=== PATIENT | male | born 1975 | race African-American/Black ===

== ENCOUNTER 2019-05-10 22:05 | Emergency (ER) | payer SELFPAY ==
[2019-05-10 22:12] VITALS: BP 160/125; PULSE 99; TEMP 98.1; BMI 32.3
[2019-05-10] MEDS ORDERED: KETOROLAC TROMETHAMINE 60 MG/2 ML VIAL ONE (22:28)
[2019-05-10] MEDS ORDERED: KETOROLAC TROMETHAMINE 60 MG/2 ML VIAL IM ONE (22:28)
--- NOTE | 2019-05-10 22:33 | PDOC ---
History of Present Illness - General Chief Complaint: Pain, Acute Stated Complaint: GROIN PROBLEM Time Seen by Provider: 05/10/19 22:27 History Source: Patient Exam Limitations: Clinical Condition - History of Present Illness Initial Comments: 05/10/19 22:29 Patient with no significant past medical history complaint of right-sided scrotal pain after to right groin area after waking up this morning. Patient felt he might have slept on his testicles. Patient did not take anything for pain. Denies nausea, vomiting, burning with urination or penile discharge. Denies any other symptoms Timing/Duration: 4-6 hours Past History - Past Medical History Allergies/Adverse Reactions: Allergies Allergy/AdvReac Type Severity Reaction Status Date / Time No Known Allergies Allergy Verified 05/10/19 22:32 Home Medications: Ambulatory Orders Ibuprofen 800 mg PO Q8H PRN #20 tablet 05/10/19 COPD: No - Suicide/Smoking/Psychosocial Hx Smoking History: Unknown if ever smoked Information on smoking cessation initiated: No Hx Alcohol Use: No Drug/Substance Use Hx: No Review of Systems - Review of Systems Able to Perform ROS?: Yes Is the patient limited [place] proficient: No Constitutional: No: Weakness HEENTM: No: Symptoms Reported Respiratory: No: Symptoms reported Cardiac (ROS): No: Symptoms Reported : Yes: Symptoms Reported, See HPI, Testicular Pain (righ side). No: Dysuria, Discharge, Urgency, Testicular Mass, Testicular Swelling, Lesions Musculoskeletal: Yes: Symptoms Reported, See HPI, Muscle Pain (right groin pain) Neurological: No: Symptoms reported All Other Systems: Reviewed and Negative *Physical Exam - Vital Signs Last Vital Signs Temp Pulse Resp BP Pulse Ox 98.1 F 99 H 20 160/125 H 95 05/10/19 22:07 05/10/19 22:07 05/10/19 22:07 05/10/19 22:07 05/10/19 22:07 - Physical Exam Comments: 05/10/19 22:32 GENERAL: Well developed, well nourished. Awake and alert in moderate acute distress. NECK: Supple. Full ROM. CARDIOVASCULAR: Regular rate and rhythm. No murmurs, rubs, or gallops. Distal pulses are 2+ and symmetric. PULMONARY: No evidence of respiratory distress. ABDOMINAL: Soft. Non-tender. Non-distended. No rebound or guarding. No organomegaly. Normoactive bowel sounds. MUSCULOSKELETAL Normal range of motion at all joints. : moderate tenderness to right testicles and groin. no scrotal swelling. no mass or hernia appreciated SKIN: Warm and dry. Normal capillary refill. No rashes. No jaundice. NEUROLOGICAL: Alert, awake, appropriate. Gait is normal without ataxia. PSYCHIATRIC: Cooperative. Good eye contact. Appropriate mood General Appearance: Yes: Nourished, Appropriately Dressed, Apparent Distress, Moderate Distress ED Treatment Course - RADIOLOGY Radiology Studies Ordered: Category Date Time Status SCROTUM AND CONTENTS US [US] Stat Ultrasound 05/10/19 22:28 Ordered Medical Decision Making - Medical Decision Making 05/10/19 22:30 Patient with no significant past medical history complaint of right-sided scrotal pain after to right groin area after waking up this morning. Patient felt he might have slept on his testicles. Patient did not take anything for pain. Denies nausea, vomiting, burning with urination or penile discharge. Denies any other symptoms Exam significant for moderate tenderness to right testicle and right groin area. No testicular mass on exam. No evidence of hernia on exam. Toradol 60 mg IM ordered for pain. Scrotal ultrasound ordered to rule out torsion or acute pathology. 05/10/19 23:52 testicular U/S shows no torsion. Patient advised to f/u with urology. Motrin as needed for pain *DC/Admit/Observation/Transfer Diagnosis at time of Disposition: Testicular pain, right - Discharge Dispostion Disposition: HOME Condition at time of disposition: Stable Decision to Admit order: No - Prescriptions Prescriptions: Ibuprofen 800 mg PO Q8H PRN #20 tablet PRN Reason: pain - Referrals Referrals: Andreas Acevedo MD [Staff Physician] - - Patient Instructions Additional Instructions: testicular ultrasound was normal and shows no hernia or torsion. Take prescribed medication as needed for pain. Apply warm compress to the area as needed for pain. Follow-up referred urology if symptoms persist for more than 2 days - Post Discharge Activity
--- NOTE | 2019-05-11 00:20 | PDOC ---
*Physical Exam - Vital Signs Last Vital Signs Temp Pulse Resp BP Pulse Ox 98.1 F 99 H 20 160/125 H 95 05/10/19 22:07 05/10/19 22:07 05/10/19 22:07 05/10/19 22:07 05/10/19 22:07 Medical Decision Making - Medical Decision Making 05/11/19 00:18 Endorsed to me to follow up US patient c/o pain to the right testicle US below Patient Full Name: MILAGROS TAVAREZ Patient Accession No: [id number] Patient : 1975 Reason for Exam: r/o torsion Referring Physician: JACKIE MEEHAN Patient Name: CORBY LINARES THIS IS A PRELIMINARY REPORT FROM [facility] DATE OF SERVICE: 2019-05-10 22:27:59 IMAGES: 76 EXAM: SCROTUM AND CONTENTS US . Grayscale, color flow and Doppler images provided. HISTORY: 43-year-old male evaluate for torsion COMPARISON: None. Findings: The right testicle measures 3.2 x 4.5 x 2.6 cm. Color flow and Doppler arterial/ venous signal to the right testicle demonstrated. The echotexture of the right testicle is slightly heterogeneous with increased flow versus the left testicle noted. Right epididymal head and body normal in configuration. Right epididymal head cyst measuring approximately 6 mm in diameter. Left testicle measures 2.9 x 4.9 x 2.1 cm. Color flow and Doppler arterial/ venous signal to left testicle demonstrated. Left epididymis unremarkable. There is no evidence of right or left-sided hydrocele or varicocele. Impression: 1. No evidence of acute testicular torsion. 2. Differential diagnosis at this time includes acute orchitis versus torsion/ detorsion. Interval follow-up recommended. Clinical correlation advised. THIS DOCUMENT HAS BEEN ELECTRONICALLY SIGNED Davi Larsen MD 05/10/2019 23:52 EST [facility]. Please call [facility] [phone] ([phone]) with questions. INTERPRETING RADIOLOGIST: Davi Larsen MD Electronically Signed: May 10, 2019 11:53PM EDT 05/11/19 00:22 Results of the ultrasound discussed with the patient and need to follow up with urology. Patient also advised that he needs to follow-up with a primary care doctor for his blood pressure. *DC/Admit/Observation/Transfer Diagnosis at time of Disposition: Testicular pain, right - Discharge Dispostion Disposition: HOME Condition at time of disposition: Stable - Prescriptions Prescriptions: Ibuprofen 800 mg PO Q8H PRN #20 tablet PRN Reason: pain - Referrals Referrals: Andreas Acevedo MD [Staff Physician] - - Patient Instructions Additional Instructions: testicular ultrasound was normal and shows no hernia or torsion. Take prescribed medication as needed for pain. Apply warm compress to the area as needed for pain. Follow-up referred urology if symptoms persist for more than 2 days - Post Discharge Activity
== END 2019-05-11 00:24 | disposition home or self-care (01) ==
LOC: JERFT 22:05 → JER 22:05
PROC: 3E0233Z Introduction of Anti-inflammatory into Muscle, Percutaneous Approach (ICD-10-PCS; principal; 2019-05-10)
DX: N50.811 Right testicular pain (principal)
CPT/HCPCS: 76870-TC; 99282-25

== ENCOUNTER 2023-01-27 08:15 | Emergency (ER) | payer OTHER ==
[2023-01-27 08:28] VITALS: RESP 20; TEMP 98; BMI 32.1
[2023-01-27] MEDS ORDERED: SODIUM CHLORIDE 1,000 ML IV STA (09:04)
[2023-01-27] MEDS ORDERED: KETOROLAC TROMETHAMINE 15 MG/ML VIAL IVPUSH ONE (09:04)
[2023-01-27] MEDS ORDERED: morphine CARPU-JECT 2 MG/1 ML DISP.SYRIN IVPUSH ONE (09:05)
[2023-01-27] MEDS ORDERED: KETOROLAC TROMETHAMINE 15 MG/ML VIAL ONE (09:10)
[2023-01-27 09:15] LABS: BASO % 1.4 % (0-2.0); EOS % 1.1 % (0-4.5); HEMATOCRIT 44.9 % (35.4-49); HEMOGLOBIN 15.8 GM/dL (11.7-16.9); LYMPH % 26.9 % (8-40); MCHC 35.2 g/dl (32.0-35.9); MEAN CELL VOLUME 85.2 fl (80-96); MEAN PLT VOLUME 8.3 fl (7.5-11.1); MONO % 5.6 % (3.8-10.2); PLATELET COUNT 224 10^3/uL (134-434); RBC 5.26 M/mm3 (4.00-5.60); WHITE BLOOD COUNT 9.7 K/mm3 (4.0-10.0)
[2023-01-27 09:35] LABS: CALCIUM 8.6 mg/dL (8.5-10.1)
[2023-01-27 09:36] LABS: ALBUMIN 3.8 g/dl (3.4-5.0); BLOOD UREA NITROGEN 12.3 mg/dL (7-18)
[2023-01-27 09:39] LABS: CREATININE 0.9 mg/dL (0.55-1.3)
[2023-01-27 09:40] LABS: BILIRUBIN,TOTAL 0.6 mg/dL (0.2-1)
[2023-01-27 09:41] LABS: TOT PROT 7.4 g/dl (6.4-8.2)
[2023-01-27 10:23] VITALS: BP 170/100; PULSE 69
[2023-01-27 12:20] LABS: EPI CELLS 8 /uL (0-25.1); HYALINE CASTS 2 /uL (0-3.1); PH,URINE 5.5 (5.0-8.0); URINE APPEARANCE CLEAR; URINE BACTERIA 16 /uL (0-1359); URINE BILIRUBIN NEGATIVE (NEGATIVE); URINE COLOR YELLOW; URINE GLUCOSE (UA) TRACE (NEGATIVE); URINE KETONE NEGATIVE (NEGATIVE); URINE LEUK ESTERASE TRACE (NEGATIVE); URINE NITRITE NEGATIVE (NEGATIVE); URINE PROTEIN NEGATIVE (NEGATIVE); URINE RBC 20 /uL (0-23.9); URINE UROBILINOGEN 0.2 mg/dL (0.2-1.0); URINE WBC 21 /uL (0-25.8)
== END 2023-01-27 13:04 | disposition home or self-care (01) ==
LOC: JER 08:15
PROC: 3E0333Z Introduction of Anti-inflammatory into Peripheral Vein, Percutaneous Approach (ICD-10-PCS; principal; 2023-01-27)
PROC: 3E033GC Introduction of Other Therapeutic Substance into Peripheral Vein, Percutaneous Approach (ICD-10-PCS; 2023-01-27)
PROC: 3E0337Z Introduction of Electrolytic and Water Balance Substance into Peripheral Vein, Percutaneous Approach (ICD-10-PCS; 2023-01-27)
DX: R31.9 Hematuria, unspecified (principal); M54.50 Low back pain, unspecified; R10.32 Left lower quadrant pain
CPT/HCPCS: 36415; 74176-TC; 80053; 81003; 85025; 87077; 87086; 87186; 99284-25

== ENCOUNTER 2023-06-02 20:14 | Inpatient (IN) | payer OTHER ==
[2023-06-02] MEDS ORDERED: LACTATED RINGERS SOLUTION 1000 ML INFUS.BAG IV ONE (21:00)
[2023-06-02] MEDS ORDERED: morphine CARPU-JECT 4 MG/1 ML DISP.SYRIN IVPUSH ONE ×2 (21:00→23:07)
[2023-06-02] MEDS ORDERED: morphine SULFATE 4 MG/ML VIAL ONE ×2 (21:23→23:22)
[2023-06-02 21:29] LABS: VENOUS BASE EXCESS 1.4 mmol/L (-2-2); VENOUS O2 SATURATION 89.8 % (70-80); VENOUS PCO2 38.7 mmHg (38-52); VENOUS PH 7.436 (7.310-7.410)
[2023-06-02 21:41] LABS: CHLORIDE 90 mmol/L (98-107); POTASSIUM 3.7 mmol/L (3.5-5.1); SODIUM 128 mmol/L (136-145)
[2023-06-02 21:44] LABS: ANION GAP 8 MMOL/L (8-16); CO2 29 mmol/L (21-32); LIPASE 501 U/L (73-393)
[2023-06-02 21:47] LABS: CREATININE 1.4 mg/dL (0.55-1.3)
[2023-06-02 21:57] LABS: MCH 28.7 pg (25.7-33.7); MEAN CELL VOLUME 86.5 fl (80-96); RDW 14.5 % (11.9-15.9)
[2023-06-02 22:01] LABS: RBC 5.43 M/mm3 (4.00-5.60); WHITE BLOOD COUNT 15.4 K/mm3 (4.0-10.0)
[2023-06-02 22:02] LABS: HEMOGLOBIN 15.3 GM/dL (11.7-16.9); MCHC 33.2 g/dl (32.0-35.9); MEAN PLT VOLUME 9.6 fl (7.5-11.1); PLATELET COUNT 241 10^3/uL (134-434)
[2023-06-02 22:03] LABS: BASO % 1.4 % (0-2.0); EOS % 0.6 % (0-4.5); LYMPH % 16.8 % (8-40); MONO % 4.6 % (3.8-10.2); NEUT % 76.6 % (42.8-82.8)
[2023-06-02 22:20] LABS: ALBUMIN 3.2 g/dl (3.4-5.0); ALK PHOS 77 U/L (45-117); BLOOD UREA NITROGEN 13.2 mg/dL (7-18); CALCIUM 5.2 mg/dL (8.5-10.1); GLUCOSE,RANDOM 565 mg/dL (74-106); TOT PROT 7.6 g/dl (6.4-8.2)
[2023-06-02] MEDS ORDERED: ASPIRIN 81 MG CHEWABLE TABLETS ONE (22:27)
[2023-06-02 22:44] LABS: EPI CELLS 2 /uL (0-25.1); HYALINE CASTS 0 /uL (0-3.1); URINE APPEARANCE CLEAR; URINE BACTERIA 10 /uL (0-1359); URINE BILIRUBIN NEGATIVE (NEGATIVE); URINE COLOR YELLOW; URINE GLUCOSE (UA) 3+ (NEGATIVE); URINE KETONE 1+ (NEGATIVE); URINE LEUK ESTERASE NEGATIVE (NEGATIVE); URINE NITRITE NEGATIVE (NEGATIVE); URINE PROTEIN NEGATIVE (NEGATIVE); URINE RBC 14 /uL (0-23.9); URINE UROBILINOGEN 0.2 mg/dL (0.2-1.0); URINE WBC 2 /uL (0-25.8)
[2023-06-02] MEDS: ASPIRIN 81 MG CHEWABLE TABLETS PO SCH (23:15)
[2023-06-02] MEDS ORDERED: POTASSIUM CHLORIDE ORAL LIQUID 20 MEQ/15 ML PO ONE (23:22)
[2023-06-02 23:44] LABS: CHLORIDE 94 mmol/L (98-107); POTASSIUM 3.8 mmol/L (3.5-5.1); SODIUM 129 mmol/L (136-145)
[2023-06-02] MEDS ORDERED: LACTATED RINGERS SOLUTION 1,000 ML with POTASSIUM CHLORIDE 20 MEQ IV ONE (23:45)
[2023-06-02 23:47] LABS: ANION GAP 9 MMOL/L (8-16); CO2 25 mmol/L (21-32)
[2023-06-02 23:50] LABS: CREATININE 1.1 mg/dL (0.55-1.3)
[2023-06-03] MEDS ORDERED: POTASSIUM CHLORIDE ORAL LIQUID 20 MEQ/15 ML ONE
[2023-06-03] MEDS ORDERED: INSULIN REGULAR HUMAN 100 UNITS/ML *VIAL* (FOR IVP) IVPUSH ONE (00:18)
[2023-06-03] MEDS ORDERED: HYDROmorphone HCl 2 MG/ML VIAL IVPUSH PRN (00:26)
[2023-06-03 00:30] LABS: LACTIC ACID 3.4 mmol/L (0.4-2.0)
[2023-06-03] MEDS ORDERED: INSULIN REGULAR HUMAN 100 UNITS/ML *VIAL ONE ×2 (00:30→22:25)
[2023-06-03] MEDS ORDERED: INSULIN REGULAR 100 UNITS in SODIUM CHLORIDE 99 ML IVPB SCH (00:30)
[2023-06-03] MEDS: D5-NS + 40 MEQ KCL - 40 MEQ/1,000 ML INFUS.BAG IV SCH ×2 (00:58→06:32)
[2023-06-03 01:36] LABS: BLOOD UREA NITROGEN 12.2 mg/dL (7-18)
[2023-06-03 01:38] LABS: ALK PHOS 67 U/L (45-117); TOT PROT 7.1 g/dl (6.4-8.2)
[2023-06-03] MEDS: HYDROmorphone HCl 2 MG/ML VIAL IVPUSH PRN ×2 (01:40→11:00)
[2023-06-03 02:08] LABS: LDL CHOLESTEROL (ONLY SJRH) 129 mg/dL (5-100)
[2023-06-03 02:23] LABS: BILIRUBIN,TOTAL 1.8 mg/dL (0.2-1); CALCIUM 5.4 mg/dL (8.5-10.1); CHOLESTEROL 368 mg/dL (50-200); GLUCOSE,RANDOM 461 mg/dL (74-106); HDL CHOLESTEROL 42 mg/dL (40-60)
[2023-06-03] MEDS: HEPARIN NA (PORCINE) 5,000 UNITS/ML 1ML VIAL SQ SCH ×3 (05:34→21:24)
[2023-06-03] MEDS ORDERED: LABETALOL HCL 5 MG/1 ML (100MG/20 ML VIAL) IVPUSH PRN (06:20)
[2023-06-03] MEDS ORDERED: ONDANSETRON 4 MG/2 ML VIAL ONE (07:16)
[2023-06-03 07:22] LABS: HEMATOCRIT 42.9 % (35.4-49); HEMOGLOBIN 15.9 GM/dL (11.7-16.9); MCHC 37.1 g/dl (32.0-35.9); MEAN CELL VOLUME 86.3 fl (80-96); MEAN PLT VOLUME 9.8 fl (7.5-11.1); PLATELET COUNT 206 10^3/uL (134-434); RBC 4.97 M/mm3 (4.00-5.60); RDW 14.7 % (11.9-15.9)
[2023-06-03 09:08] LABS: CHLORIDE 103 mmol/L (98-107); POTASSIUM 4.2 mmol/L (3.5-5.1); SODIUM 134 mmol/L (136-145)
[2023-06-03 09:10] LABS: ANION GAP 7 MMOL/L (8-16); CO2 24 mmol/L (21-32); GLUCOSE,RANDOM 320 mg/dL (74-106); MAGNESIUM 2.3 mg/dL (1.8-2.4)
[2023-06-03 09:13] LABS: CREATININE 0.8 mg/dL (0.55-1.3); PHOSPHOROUS 1.5 mg/dL (2.5-4.9)
[2023-06-03] MEDS ORDERED: POTASSIUM PHOSPHATE 30 MM in SODIUM CHLORIDE 500 ML IVPB ONE (09:17)
[2023-06-03] MEDS: ASPIRIN 81 MG CHEWABLE TABLETS PO SCH (09:31)
[2023-06-03 09:36] LABS: BLOOD UREA NITROGEN 9.3 mg/dL (7-18); CALCIUM 6.2 mg/dL (8.5-10.1)
[2023-06-03] MEDS ORDERED: ALBUMIN HUMAN 5% 500 ML IV SOLUTION IV ONE (10:41)
[2023-06-03] MEDS ORDERED: CALCIUM GLUCONATE IN NACL 1 GM/50 ML BAG IVPB ONE ×2 (10:43→16:15)
[2023-06-03] MEDS ORDERED: CALCIUM GLUCONATE 10% - 1,000 MG/10 ML VIAL ONE ×2 (10:52→16:02)
[2023-06-03] MEDS: MUPIROCIN 2% TOPICAL OINTMENT FOR DECOLONIZATION NS SCH ×2 (11:10→21:48)
[2023-06-03 11:21] LABS: INR 1.07 (0.83-1.09); PROTHROMBIN TIME (PATIENT) 12.4 SEC (9.7-13.0)
[2023-06-03 11:28] LABS: CHLORIDE 105 mmol/L (98-107); POTASSIUM 4.2 mmol/L (3.5-5.1); SODIUM 134 mmol/L (136-145)
[2023-06-03 11:31] LABS: ALBUMIN 2.8 g/dl (3.4-5.0); ANION GAP 6 MMOL/L (8-16); CO2 23 mmol/L (21-32); GLUCOSE,RANDOM 302 mg/dL (74-106)
[2023-06-03 11:34] LABS: CREATININE 0.7 mg/dL (0.55-1.3)
[2023-06-03 11:36] LABS: BILIRUBIN,TOTAL 0.9 mg/dL (0.2-1)
[2023-06-03 11:42] LABS: ALK PHOS 57 U/L (45-117); BLOOD UREA NITROGEN 7.4 mg/dL (7-18); CALCIUM 6.4 mg/dL (8.5-10.1); TOT PROT 6.4 g/dl (6.4-8.2)
[2023-06-03] MEDS ORDERED: CALCIUM GLUCONATE IN NACL 1 GM/50 ML BAG IVPB SCH (13:00)
[2023-06-03] MEDS ORDERED: ACETAMINOPHEN 1000 MG/100 ML BAG IVPB ONE (14:10)
[2023-06-03] MEDS ORDERED: ONDANSETRON 4 MG/2 ML VIAL IVPUSH ONE (14:33)
[2023-06-03 16:06] LABS: CHLORIDE 108 mmol/L (98-107); SODIUM 137 mmol/L (136-145)
[2023-06-03 16:09] LABS: ALBUMIN 2.7 g/dl (3.4-5.0); ANION GAP 5 MMOL/L (8-16); CO2 24 mmol/L (21-32); GLUCOSE,RANDOM 256 mg/dL (74-106)
[2023-06-03 16:12] LABS: CREATININE 0.7 mg/dL (0.55-1.3)
[2023-06-03 16:13] LABS: BILIRUBIN,TOTAL 0.7 mg/dL (0.2-1)
[2023-06-03 16:15] LABS: ALK PHOS 54 U/L (45-117)
[2023-06-03 16:23] LABS: BLOOD UREA NITROGEN 4.9 mg/dL (7-18); CALCIUM 6.8 mg/dL (8.5-10.1)
[2023-06-03 19:36] LABS: CHLORIDE 114 mmol/L (98-107); POTASSIUM 4.1 mmol/L (3.5-5.1); SODIUM 143 mmol/L (136-145)
[2023-06-03 19:39] LABS: ANION GAP 6 MMOL/L (8-16); BLOOD UREA NITROGEN 3.2 mg/dL (7-18); CO2 22 mmol/L (21-32); GLUCOSE,RANDOM 216 mg/dL (74-106)
[2023-06-03 19:42] LABS: CREATININE 0.6 mg/dL (0.55-1.3)
[2023-06-03 19:44] LABS: TOT PROT 5.4 g/dl (6.4-8.2)
[2023-06-03 20:25] LABS: ALBUMIN 3.8 g/dl (3.4-5.0); ALK PHOS 21 U/L (45-117); CALCIUM 6.9 mg/dL (8.5-10.1); SGOT/AST 17 U/L (15-37); SGPT/ALT 18 U/L (13-61)
[2023-06-03] MEDS ORDERED: CALCIUM GLUCONATE 10% - 1,000 MG/10 ML VIAL IVPB ONE (21:03)
[2023-06-03] MEDS: LACTATED RINGERS SOLUTION 1,000 ML/1,000 ML INFUS.BAG IV SCH (21:44)
[2023-06-03] MEDS: INSULIN SLIDING SCALE (NOVOLOG) 1 VIAL SQ SCH (21:48)
[2023-06-03] MEDS: CHLORHEXIDINE GLUCONATE 4% CLEANSER FOR DECOLONIZATION TP SCH (21:50)
[2023-06-04] MEDS: ACETAMINOPHEN 1000 MG/100 ML BAG IVPB PRN ×4 (00:11→22:07)
[2023-06-04] MEDS: INSULIN SLIDING SCALE (NOVOLOG) 1 VIAL SQ SCH ×6 (01:30→22:11)
[2023-06-04] MEDS: HEPARIN NA (PORCINE) 5,000 UNITS/ML 1ML VIAL SQ SCH ×3 (06:27→22:08)
[2023-06-04 07:30] LABS: BASO % 0.5 % (0-2.0); EOS % 1.2 % (0-4.5); HEMATOCRIT 42.9 % (35.4-49); HEMOGLOBIN 14.5 GM/dL (11.7-16.9); LYMPH % 10.9 % (8-40); MCHC 33.7 g/dl (32.0-35.9); MEAN CELL VOLUME 86.2 fl (80-96); MEAN PLT VOLUME 9.6 fl (7.5-11.1); MONO % 7.1 % (3.8-10.2); NEUT % 80.3 % (42.8-82.8); PLATELET COUNT 155 10^3/uL (134-434); RBC 4.98 M/mm3 (4.00-5.60); WHITE BLOOD COUNT 16.7 K/mm3 (4.0-10.0)
[2023-06-04 07:48] LABS: POTASSIUM 3.6 mmol/L (3.5-5.1)
[2023-06-04 07:52] LABS: BLOOD UREA NITROGEN 4.2 mg/dL (7-18)
[2023-06-04 07:53] LABS: ALBUMIN 3.8 g/dl (3.4-5.0); MAGNESIUM 1.6 mg/dL (1.8-2.4)
[2023-06-04 07:56] LABS: CREATININE 0.6 mg/dL (0.55-1.3); PHOSPHOROUS 2.3 mg/dL (2.5-4.9)
[2023-06-04 07:57] LABS: BILIRUBIN,TOTAL 1.3 mg/dL (0.2-1); TOT PROT 5.9 g/dl (6.4-8.2)
[2023-06-04 08:00] LABS: CALCIUM 8.1 mg/dL (8.5-10.1)
[2023-06-04] MEDS ORDERED: MAGNESIUM SULF 50% (8.12 MEQ/2 ML-1 GM VIAL) IVPB ONE (08:02)
[2023-06-04] MEDS ORDERED: POTASSIUM PHOSPHATE 30 MM in SODIUM CHLORIDE 250 ML IVPB ONE (08:03)
[2023-06-04] MEDS ORDERED: morphine SULFATE 4 MG/ML VIAL IVPUSH PRN (08:24)
[2023-06-04] MEDS ORDERED: REMDESIVIR 200 MG in SODIUM CHLORIDE 250 ML IVPB ONE (09:00)
[2023-06-04] MEDS ORDERED: CALCIUM GLUCONATE 10% - 1,000 MG/10 ML VIAL IVPB ONE (09:19)
[2023-06-04] MEDS: ASPIRIN 81 MG CHEWABLE TABLETS PO SCH (09:39)
[2023-06-04] MEDS: MUPIROCIN 2% TOPICAL OINTMENT FOR DECOLONIZATION NS SCH ×2 (09:39→22:14)
[2023-06-04] MEDS ORDERED: PANTOPRAZOLE 40 MG TABLET PO SCH (10:00)
[2023-06-04] MEDS ORDERED: INSULIN (NOVOLOG) ASPART 100 UNITS/ML 10ML VIAL ONE ×3 (10:36→16:35)
[2023-06-04] MEDS ORDERED: ALBUMIN HUMAN 5% 500 ML IV SOLUTION IV ONE (11:00)
[2023-06-04] MEDS: PANTOPRAZOLE SODIUM 40 MG VIAL IVPUSH SCH (11:09)
[2023-06-04] MEDS: CEFTRIAXONE 1 GM in DEXTROSE 5%-WATER - 50 ML IVPB SCH (12:21)
[2023-06-04] MEDS ORDERED: ALBUMIN HUMAN 5% 250 ML IV SOLUTION IV ONE (13:07)
[2023-06-04] MEDS ORDERED: ALBUMIN HUMAN 25% 12.5 GM/50 ML VIAL IV ONE (13:08)
[2023-06-04] MEDS ORDERED: DEXAMETHASONE SOD PHOSPHATE 10 MG/1 ML VIAL IVPUSH SCH (14:15)
[2023-06-04] MEDS: CHLORHEXIDINE GLUCONATE 4% CLEANSER FOR DECOLONIZATION TP SCH (22:09)
[2023-06-04] MEDS: LACTATED RINGERS SOLUTION 1,000 ML/1,000 ML INFUS.BAG IV SCH (22:13)
[2023-06-05] MEDS: INSULIN SLIDING SCALE (NOVOLOG) 1 VIAL SQ SCH ×6 (01:45→21:59)
[2023-06-05] MEDS ORDERED: INSULIN (NOVOLOG) ASPART 100 UNITS/ML 10ML VIAL ONE ×4 (06:48→21:24)
[2023-06-05] MEDS: HEPARIN NA (PORCINE) 5,000 UNITS/ML 1ML VIAL SQ SCH ×3 (06:54→21:59)
[2023-06-05 07:06] LABS: BASO % 0.5 % (0-2.0); EOS % 1.5 % (0-4.5); HEMATOCRIT 44.8 % (35.4-49); HEMOGLOBIN 14.5 GM/dL (11.7-16.9); LYMPH % 10.9 % (8-40); MCH 28.2 pg (25.7-33.7); MCHC 32.4 g/dl (32.0-35.9); MEAN CELL VOLUME 87.1 fl (80-96); MEAN PLT VOLUME 9.4 fl (7.5-11.1); MONO % 6.7 % (3.8-10.2); NEUT % 80.4 % (42.8-82.8); PLATELET COUNT 157 10^3/uL (134-434); RBC 5.14 M/mm3 (4.00-5.60); RDW 15.2 % (11.9-15.9); WHITE BLOOD COUNT 18.3 K/mm3 (4.0-10.0)
[2023-06-05 07:24] LABS: POTASSIUM 3.5 mmol/L (3.5-5.1)
[2023-06-05 07:26] LABS: CALCIUM 8.1 mg/dL (8.5-10.1)
[2023-06-05 07:27] LABS: ALBUMIN 3.8 g/dl (3.4-5.0)
[2023-06-05 07:30] LABS: CREATININE 0.6 mg/dL (0.55-1.3); PHOSPHOROUS 1.6 mg/dL (2.5-4.9)
[2023-06-05 07:31] LABS: BILIRUBIN,TOTAL 1.1 mg/dL (0.2-1); TOT PROT 5.5 g/dl (6.4-8.2)
[2023-06-05] MEDS ORDERED: POTASSIUM PHOSPHATE 30 MM in SODIUM CHLORIDE 250 ML IVPB ONE ×2 (08:23→09:00)
[2023-06-05] MEDS ORDERED: REMDESIVIR 100 MG in SODIUM CHLORIDE 270 ML IVPB ONE (09:00)
[2023-06-05] MEDS: PANTOPRAZOLE SODIUM 40 MG VIAL IVPUSH SCH (09:10)
[2023-06-05] MEDS: ASPIRIN 81 MG CHEWABLE TABLETS PO SCH (09:10)
[2023-06-05] MEDS: FENOFIBRIC ACID 135 MG CAP PO SCH (09:11)
[2023-06-05] MEDS: CEFTRIAXONE 1 GM in DEXTROSE 5%-WATER - 50 ML IVPB SCH (09:11)
[2023-06-05] MEDS: MUPIROCIN 2% TOPICAL OINTMENT FOR DECOLONIZATION NS SCH ×2 (09:12→21:59)
[2023-06-05] MEDS: CHLORHEXIDINE GLUCONATE 4% CLEANSER FOR DECOLONIZATION TP SCH (21:59)
[2023-06-05] MEDS ORDERED: MELATONIN 5 MG TABLETS PO SCH (22:00)
[2023-06-06] MEDS: LACTATED RINGERS SOLUTION 1,000 ML/1,000 ML INFUS.BAG IV SCH ×2 (01:05→19:58)
[2023-06-06] MEDS: INSULIN SLIDING SCALE (NOVOLOG) 1 VIAL SQ SCH ×5 (01:09→21:02)
[2023-06-06] MEDS: HEPARIN NA (PORCINE) 5,000 UNITS/ML 1ML VIAL SQ SCH ×3 (05:31→21:09)
[2023-06-06] MEDS ORDERED: LACTATED RINGERS SOLUTION 1,000 ML/1,000 ML INFUS.BAG IV SCH (07:53)
[2023-06-06 08:05] LABS: HEMATOCRIT 41.8 % (35.4-49); HEMOGLOBIN 13.4 GM/dL (11.7-16.9); MCH 28.1 pg (25.7-33.7); MCHC 32.1 g/dl (32.0-35.9); MEAN CELL VOLUME 87.3 fl (80-96); MEAN PLT VOLUME 9.9 fl (7.5-11.1); PLATELET COUNT 170 10^3/uL (134-434); RBC 4.78 M/mm3 (4.00-5.60); RDW 15.3 % (11.9-15.9); WHITE BLOOD COUNT 13.3 K/mm3 (4.0-10.0)
[2023-06-06 08:37] LABS: POTASSIUM 3.5 mmol/L (3.5-5.1)
[2023-06-06 08:39] LABS: CALCIUM 8.2 mg/dL (8.5-10.1); MAGNESIUM 2.1 mg/dL (1.8-2.4)
[2023-06-06 08:40] LABS: BLOOD UREA NITROGEN 7.6 mg/dL (7-18)
[2023-06-06 08:42] LABS: CREATININE 0.5 mg/dL (0.55-1.3)
[2023-06-06 08:43] LABS: PHOSPHOROUS 2.2 mg/dL (2.5-4.9)
[2023-06-06] MEDS ORDERED: REMDESIVIR 100 MG in SODIUM CHLORIDE 270 ML IVPB ONE (09:00)
[2023-06-06] MEDS: ASPIRIN 81 MG CHEWABLE TABLETS PO SCH (09:45)
[2023-06-06] MEDS: MUPIROCIN 2% TOPICAL OINTMENT FOR DECOLONIZATION NS SCH (09:45)
[2023-06-06] MEDS: CEFTRIAXONE 1 GM in DEXTROSE 5%-WATER - 50 ML IVPB SCH (09:45)
[2023-06-06] MEDS: FENOFIBRIC ACID 135 MG CAP PO SCH (09:46)
[2023-06-06] MEDS ORDERED: HYDROCHLOROTHIAZIDE 12.5 MG CAPSULE (FP) PO SCH (10:00)
[2023-06-06] MEDS ORDERED: amLODIPine BESYLATE 10 MG TABLET (FP) PO SCH (10:00)
[2023-06-06] MEDS ORDERED: PANTOPRAZOLE 40 MG TABLET PO SCH (10:00)
[2023-06-06] MEDS ORDERED: VALSARTAN 160 MG TABLET PO SCH (10:00)
[2023-06-06] MEDS ORDERED: INSULIN (NOVOLOG) ASPART 100 UNITS/ML 10ML VIAL ONE ×2 (11:35→20:55)
[2023-06-06] MEDS ORDERED: LABETALOL HCL 5 MG/1 ML (100MG/20 ML VIAL) IVPUSH PRN (19:04)
[2023-06-06] MEDS ORDERED: INSULIN (LEVEMIR) 100 UNITS/ML UNITS SQ ONE (20:56)
[2023-06-06] MEDS: INSULIN (LEVEMIR) 100 UNITS/ML UNITS SQ SCH (21:02)
[2023-06-06] MEDS: ROSUVASTATIN CA 20 MG TABLET PO SCH (21:09)
[2023-06-06] MEDS: MELATONIN 5 MG TABLETS PO SCH (21:09)
[2023-06-06] MEDS ORDERED: CHLORHEXIDINE GLUCONATE 4% CLEANSER FOR DECOLONIZATION TP SCH (22:00)
[2023-06-06] MEDS ORDERED: ROSUVASTATIN CA 20 MG TABLET PO SCH (22:00)
[2023-06-06] MEDS ORDERED: MUPIROCIN 2% TOPICAL OINTMENT FOR DECOLONIZATION NS SCH (22:00)
[2023-06-07] MEDS ORDERED: INSULIN (NOVOLOG) ASPART 100 UNITS/ML 10ML VIAL ONE ×2 (06:27→12:09)
[2023-06-07] MEDS: HEPARIN NA (PORCINE) 5,000 UNITS/ML 1ML VIAL SQ SCH ×3 (06:55→21:52)
[2023-06-07] MEDS: INSULIN (LEVEMIR) 100 UNITS/ML UNITS SQ SCH ×2 (06:55→21:53)
[2023-06-07] MEDS: INSULIN SLIDING SCALE (NOVOLOG) 1 VIAL SQ SCH ×4 (06:59→21:56)
[2023-06-07 08:27] LABS: HEMATOCRIT 42.9 % (35.4-49); HEMOGLOBIN 14.6 GM/dL (11.7-16.9); MCH 28.7 pg (25.7-33.7); MEAN CELL VOLUME 84.5 fl (80-96); MEAN PLT VOLUME 8.4 fl (7.5-11.1); PLATELET COUNT 193 10^3/uL (134-434); RBC 5.08 M/mm3 (4.00-5.60); RDW 15.3 % (11.9-15.9); WHITE BLOOD COUNT 11.1 K/mm3 (4.0-10.0)
[2023-06-07 08:45] LABS: POTASSIUM 3.2 mmol/L (3.5-5.1)
[2023-06-07 09:02] LABS: MAGNESIUM 2.3 mg/dL (1.8-2.4)
[2023-06-07 09:04] LABS: ALBUMIN 3.4 g/dl (3.4-5.0); BLOOD UREA NITROGEN 10.8 mg/dL (7-18); CALCIUM 8.5 mg/dL (8.5-10.1)
[2023-06-07 09:05] LABS: CREATININE 0.7 mg/dL (0.55-1.3)
[2023-06-07 09:07] LABS: PHOSPHOROUS 3.3 mg/dL (2.5-4.9); TOT PROT 6.1 g/dl (6.4-8.2)
[2023-06-07 09:09] LABS: BILIRUBIN,TOTAL 0.8 mg/dL (0.2-1)
[2023-06-07] MEDS: LACTATED RINGERS SOLUTION 1,000 ML/1,000 ML INFUS.BAG IV SCH ×2 (10:22→21:51)
[2023-06-07] MEDS: CEFTRIAXONE 1 GM in DEXTROSE 5%-WATER - 50 ML IVPB SCH (10:23)
[2023-06-07] MEDS: PANTOPRAZOLE 40 MG TABLET PO SCH (10:23)
[2023-06-07] MEDS: VALSARTAN 160 MG TABLET PO SCH (10:23)
[2023-06-07] MEDS: ASPIRIN 81 MG CHEWABLE TABLETS PO SCH (10:23)
[2023-06-07] MEDS: FENOFIBRIC ACID 135 MG CAP PO SCH (10:23)
[2023-06-07] MEDS: amLODIPine BESYLATE 10 MG TABLET (FP) PO SCH (10:23)
[2023-06-07] MEDS: HYDROCHLOROTHIAZIDE 12.5 MG CAPSULE (FP) PO SCH (10:24)
[2023-06-07] MEDS: POTASSIUM CHLORIDE TABS 20 MEQ TABLET.ER (FP) PO SCH ×2 (12:14→21:52)
[2023-06-07] MEDS: ROSUVASTATIN CA 20 MG TABLET PO SCH (21:52)
[2023-06-07] MEDS: MELATONIN 5 MG TABLETS PO SCH (21:52)
[2023-06-08 06:06] VITALS: RESP 20
[2023-06-08] MEDS: INSULIN SLIDING SCALE (NOVOLOG) 1 VIAL SQ SCH ×2 (06:51→12:02)
[2023-06-08] MEDS: INSULIN (LEVEMIR) 100 UNITS/ML UNITS SQ SCH (06:52)
[2023-06-08] MEDS: HEPARIN NA (PORCINE) 5,000 UNITS/ML 1ML VIAL SQ SCH (06:53)
[2023-06-08] MEDS: ASPIRIN 81 MG CHEWABLE TABLETS PO SCH (09:35)
[2023-06-08] MEDS: HYDROCHLOROTHIAZIDE 12.5 MG CAPSULE (FP) PO SCH (09:35)
[2023-06-08] MEDS: FENOFIBRIC ACID 135 MG CAP PO SCH (09:35)
[2023-06-08] MEDS: PANTOPRAZOLE 40 MG TABLET PO SCH (09:35)
[2023-06-08] MEDS: amLODIPine BESYLATE 10 MG TABLET (FP) PO SCH (09:35)
[2023-06-08] MEDS: CEFTRIAXONE 1 GM in DEXTROSE 5%-WATER - 50 ML IVPB SCH (09:36)
[2023-06-08] MEDS: VALSARTAN 160 MG TABLET PO SCH (09:36)
[2023-06-08 10:13] LABS: BASO % 0.9 % (0-2.0); EOS % 1.5 % (0-4.5); HEMATOCRIT 43.2 % (35.4-49); HEMOGLOBIN 14.2 GM/dL (11.7-16.9); LYMPH % 17.1 % (8-40); MCH 28.3 pg (25.7-33.7); MCHC 32.9 g/dl (32.0-35.9); MEAN CELL VOLUME 86.1 fl (80-96); MONO % 9.1 % (3.8-10.2); NEUT % 71.4 % (42.8-82.8); PLATELET COUNT 223 10^3/uL (134-434); RBC 5.02 M/mm3 (4.00-5.60); WHITE BLOOD COUNT 11.2 K/mm3 (4.0-10.0)
[2023-06-08 10:28] LABS: POTASSIUM 3.7 mmol/L (3.5-5.1)
[2023-06-08 10:44] VITALS: BP 145/78; PULSE 90; TEMP 98.3
[2023-06-08 10:50] LABS: ALBUMIN 3.4 g/dl (3.4-5.0); BILIRUBIN,TOTAL 0.6 mg/dL (0.2-1); BLOOD UREA NITROGEN 12.6 mg/dL (7-18); CALCIUM 8.5 mg/dL (8.5-10.1); MAGNESIUM 2.3 mg/dL (1.8-2.4); TOT PROT 6.4 g/dl (6.4-8.2)
[2023-06-08 10:53] LABS: CREATININE 0.7 mg/dL (0.55-1.3)
[2023-06-08] MEDS ORDERED: INSULIN (NOVOLOG) ASPART 100 UNITS/ML 10ML VIAL ONE (12:00)
[2023-06-08 13:43] VITALS: BMI 34.0
[2023-06-08] MEDS ORDERED: INSULIN (LEVEMIR) 100 UNITS/ML UNITS SQ SCH (22:00)
== END 2023-06-08 13:45 | disposition home or self-care (01) | DRG 282 ==
LOC: JER 20:14 → JERBED 23:26 → JICU 06-03 00:17 → J8W 06-06 18:20
PROVIDERS: ADMIT Internal Medicine Pulmonary Disease; ATTEND Nurse Practitioner Acute Care
PROC: 05HM33Z Insertion of Infusion Device into Right Internal Jugular Vein, Percutaneous Approach (ICD-10-PCS; principal; 2023-06-03)
PROC: B543ZZA Ultrasonography of Right Jugular Veins, Guidance (ICD-10-PCS; 2023-06-03)
DX: K85.90 Acute pancreatitis without necrosis or infection, unspecified (principal); U07.1 COVID-19; E11.65 Type 2 diabetes mellitus with hyperglycemia; E78.1 Pure hyperglyceridemia; I21.A1 Myocardial infarction type 2; E86.0 Dehydration; E87.20 Acidosis, unspecified; I10 Essential (primary) hypertension; E78.5 Hyperlipidemia, unspecified; E66.9 Obesity, unspecified; Z68.34 Body mass index [BMI] 34.0-34.9, adult; E83.51 Hypocalcemia; N17.9 Acute kidney failure, unspecified; E83.39 Other disorders of phosphorus metabolism; E83.42 Hypomagnesemia; R51.9 Headache, unspecified; N39.0 Urinary tract infection, site not specified; B96.20 Unspecified Escherichia coli [E. coli] as the cause of diseases classified elsewhere; B95.1 Streptococcus, group B, as the cause of diseases classified elsewhere; N50.811 Right testicular pain; R31.29 Other microscopic hematuria
CPT/HCPCS: 0241U-QW; 36415; 71045-TC-FY; 74177-TC; 76700-TC; 80048; 80053; 80061; 81003; 82010; 82330; 82803; 82962; 83036; 83605; 83690; 83735; 84100; 84478; 84484; 85025; 85027; 85384; 85610; 86140; 86850; 86900; 86901; 87040; 87077; 87086; 87186; 93005; 93010; 93306-TC; 99285-25; C9399; J1644; P9047

== ENCOUNTER 2023-07-09 04:27 | Day surgery (SDC) | payer OTHER ==
[2023-07-06 17:08] VITALS: BMI 30.4
[~2023-07-09 04:27] MED LIST: BUPIVACAINE HCL/PF 0.5% (5MG/ML) 10 ML VIAL IJ ONE; LIDOCAINE HCL 1%, 10 MG/ML (20ML VIAL) INF ONE
[2023-07-09] MEDS ORDERED: BACITRACIN ZINC 15 GM TUBE TOPICAL OINTMENT ONE (09:57)
[2023-07-09] MEDS ORDERED: LIDOCAINE HCL 1%, 10 MG/ML (20ML VIAL) ONE (09:57)
[2023-07-09] MEDS ORDERED: BUPIVACAINE HCL/PF 0.5% (5MG/ML) 10 ML VIAL ONE (09:58)
[2023-07-09] MEDS ORDERED: oxyCODONE HCL 5 MG TABLET PO PRN (10:48)
[2023-07-09] MEDS ORDERED: ONDANSETRON 4 MG/2 ML VIAL IVPUSH PRN (10:48)
[2023-07-09] MEDS ORDERED: PROMETHAZINE HCL 25 MG/1 ML VIAL IVPB PRN (10:48)
[2023-07-09] MEDS ORDERED: LACTATED RINGERS SOLUTION 1,000 ML IV SCH (11:00)
[2023-07-09] MEDS ORDERED: PROPOFOL 20 ML ONE (11:05)
[2023-07-09] MEDS ORDERED: MIDAZOLAM HCL 2 MG/2 ML SINGLE DOSE VIAL ONE (11:05)
[2023-07-09] MEDS ORDERED: SODIUM CHLORIDE 0.9% P/F 10 ML VIAL IJ ONE (11:06)
[2023-07-09] MEDS ORDERED: LIDOCAINE HCL/PF 2% SDV 5ML VIAL ONE (11:06)
[2023-07-09] MEDS ORDERED: ceFAZolin SODIUM 1 GM VIAL ONE (11:06)
[2023-07-09] MEDS ORDERED: ONDANSETRON 4 MG/2 ML VIAL ONE (11:20)
[2023-07-09] MEDS ORDERED: DEXAMETHASONE SOD PHOSPHATE 4 MG/1 ML VIAL ONE (11:20)
[2023-07-09] MEDS ORDERED: BUPIVACAINE HCL/PF 0.5% (5MG/ML) 10 ML VIAL IJ ONE (11:26)
[2023-07-09] MEDS ORDERED: LIDOCAINE HCL 1%, 10 MG/ML (20ML VIAL) INF ONE (11:26)
[2023-07-09] MEDS ORDERED: oxyCODONE HCL 5 MG TABLET ONE (13:38)
[2023-07-09 14:17] VITALS: RESP 20; TEMP 97.4
[2023-07-09 14:21] VITALS: BP 125/84; PULSE 70
== END 2023-07-09 14:05 | disposition home or self-care (01) ==
LOC: JASU-SURG 04:27
PROVIDERS: ATTEND Urology
PROC: 0VTTXZZ Resection of Prepuce, External Approach (ICD-10-PCS; principal; 2023-07-09 11:00)
DX: N47.1 Phimosis (principal); N48.1 Balanitis
CPT/HCPCS: 82962; 88304-TC; 94760